=== PATIENT | male | born 1970 ===

== ENCOUNTER 2017-12-27 14:49 | Outpatient (RCR) | payer OTHER | END 2018-01-11 08:32 | disposition home or self-care (01) | LOC: WSOH 14:49 | DX: S29.011A Strain of muscle and tendon of front wall of thorax, initial encounter (principal); Z91.041 Radiographic dye allergy status; W00.0XXA Fall on same level due to ice and snow, initial encounter; Y99.0 Civilian activity done for income or pay; Z79.82 Long term (current) use of aspirin ==